=== PATIENT | male | born 1960 | race Caucasian/White ===

== ENCOUNTER 2017-08-11 11:35 | Emergency (ER) | payer OTHER ==
[~2017-08-11] VITALS: Ht 185.4 cm; Wt 121.6 kg
[2017-08-11 11:50] VITALS: BP 146/96
--- NOTE | 2017-08-11 12:08 | PHYS DOC ---
Past History Past Medical History: Other Alcohol Use: None Drug Use: None Adult General Chief Complaint Chief Complaint: FOOT INJURY PAIN HPI HPI Patient is a 57 year old M who presents with right foot pain. Ori states that yesterday while gardening he twisted his foot. He has had mild dull constant pain that is worse with movement and palpation. He is able to walk but states that it increases his pain. He has not found any alleviating factors. He has no other associated symptoms. Review of Systems Review of Systems Constitutional: Denies fever or chills [] Eyes: Denies change in visual acuity, redness, or eye pain [] HENT: Denies nasal congestion or sore throat [] Respiratory: Denies cough or shortness of breath [] Cardiovascular: No additional information not addressed in HPI [] GI: Denies abdominal pain, nausea, vomiting, bloody stools or diarrhea [] : Denies dysuria or hematuria [] Musculoskeletal: Denies back pain Integument: Denies rash or skin lesions [] Neurologic: Denies headache, focal weakness or sensory changes [] Endocrine: Denies polyuria or polydipsia [] All other systems were reviewed and found to be within normal limits, except as documented in this note. Family History Family History No pertinent family medical history reported Current Medications Current Medications Current medications reviewed Allergies Allergies Allergies reviewed Physical Exam Physical Exam Constitutional: Well developed, well nourished, no acute distress, non-toxic appearance. [] HENT: Normocephalic, atraumatic, Eyes: , EOMI, conjunctiva normal, no discharge. [] Neck: Normal range of motion, no tenderness, supple, no stridor. [] Cardiovascular:Heart rate regular rhythm Lungs & Thorax: Bilateral breath sounds clear to auscultation [] Abdomen: Bowel sounds normal, soft, no tenderness, no masses, no pulsatile masses. [] Extremities: no cyanosis, no clubbing, ROM intact, no edema. [] Moderate swelling over the dorsal right foot, tenderness to palpation over the dorsal foot and medial foot. Pain with range of motion however normal active and passive range of motion in the foot and ankle. Strength testing limited due to pain Neurologic: Alert and oriented X 3, normal motor function, normal sensory function, no focal deficits noted. [] Psychologic: Affect normal, judgement normal, mood normal. [] Current Patient Data Vital Signs Vital Signs Date Time Temp Pulse Resp B/P (MAP) Pulse Ox O2 Delivery O2 Flow Rate FiO2 08/11/17 11:50 98.3 95 16 97 Room Air EKG EKG [] Radiology/Procedures Radiology/Procedures Right foot x-ray Impressions: No acute disease noted Course & Med Decision Making Course & Med Decision Making Pertinent Labs and Imaging studies reviewed. (See chart for details) [] Dragon Disclaimer Dragon Disclaimer This electronic medical record was generated, in whole or in part, using a voice recognition dictation system. Departure Departure: Impression: Primary Impression: Right foot sprain Disposition: HOME, SELF-CARE Condition: STABLE Referrals: PCP,UNKNOWN (PCP) Patient Instructions: Foot Sprain Additional Instructions: Ori was seen in the emergency department for foot pain. No emergency medical condition was found on history or physical exam. He did have normal x- ray of his foot. His symptoms are most consistent with a sprain. He is placed in a hard soled shoe and given a prescription for Voltaren gel. He was also advised consider lidocaine patches for pain. He was advised follow-up with his private care doctor as needed for further management. Scripts Diclofenac Sodium (VOLTAREN) 100 Gm Gel..gram. 1 GM TP QID, #100 GM 2 Refills Prov: ALEXIA ALFARO MD 08/11/17 Problem Qualifiers Primary Impression: Right foot sprain Encounter type: initial encounter Qualified Codes: S93.601A - Unspecified sprain of right foot, initial encounter ALEXIA ALFARO MD Aug 11, 2017 12:08
[2017-08-11] MEDS ORDERED: DICL100G18 TP (12:27)
--- NOTE | 2017-08-11 13:17 | RAD ---
FOOT RIGHT 3V Clinical Indication: fall Comparison: None. Findings: No displaced fracture or malalignment. Apparent lucencies along the medial base of the first distal phalanx and fifth proximal phalanx only seen on the AP view are likely artifactual. Calcaneal enthesophytes. The joint spaces are maintained. Bony mineralization is normal for the patient's age. No significant soft tissue abnormality. No radiopaque foreign body. IMPRESSION: No displaced fracture or malalignment. Apparent lucencies along the medial base of the first distal phalanx and fifth proximal phalanx only seen on the AP view are likely artifactual. Correlate for point tenderness in these regions.
== END 2017-08-11 12:33 | disposition home or self-care (01) ==
LOC: ER 11:35
DX: S93.601A Unspecified sprain of right foot, initial encounter (principal); X50.1XXA Overexertion from prolonged static or awkward postures, initial encounter; Y93.89 Activity, other specified; Y99.8 Other external cause status; Y92.89 Other specified places as the place of occurrence of the external cause
CPT/HCPCS: 73630; 99284